=== PATIENT | female | born 1985 | race Caucasian/White ===

== ENCOUNTER 2018-11-11 08:37 | Inpatient (IN) | payer BC ==
[2018-11-11] MEDS ORDERED: Oxytocin 30 UNIT 30 UNITS/500 ML BAG IV ONE ×2 (08:46→13:50)
[2018-11-11] MEDS ORDERED: Lactated Ringer's 1,000 ML IV ONE (08:46)
[2018-11-11 08:55] VITALS: BMI 25.7
[2018-11-11] MEDS ORDERED: AMPicillin 2 GM in Sodium Chloride 0.9% 100 ML IVPB ONE (09:15)
[2018-11-11] MEDS ORDERED: AMPicillin 1 GM in Sodium Chloride 0.9% 100 ML IVPB SCH (09:15)
[2018-11-11 09:24] LABS: BASO % 0.5 % (0.0-2.0); EOS # 0.1 K/uL (0.0-0.7); EOS % 0.9 % (0.0-4.0); HEMOGLOBIN 11.6 g/dL (12.0-16.0); LYMPH # 2.7 K/uL (1.0-4.3); MEAN CORPUSCULAR HEMOGLOBIN 29.3 pg (27.0-31.0); MEAN CORPUSCULAR HGB CONC 32.9 g/dL (33.0-37.0); MEAN PLATELET VOLUME 8.3 fl (7.2-11.7); MONO # 0.5 K/uL (0.0-0.8); MONO % 6.6 % (0.0-10.0); NEUT # 4.6 K/uL (1.8-7.0); RBC 3.97 Mil/uL (3.80-5.20); RED CELL DISTRIBUTION WIDTH 14.5 % (11.5-14.5); WHITE BLOOD COUNT 7.9 K/uL (4.8-10.8)
[2018-11-11 09:33] LABS: BLOOD UREA NITROGEN 10 mg/dl (7-17); CALCIUM 9.2 mg/dL (8.4-10.2); GFR NON-AFRICAN AMERICAN > 60
[2018-11-11] MEDS: Lactated Ringer's 1,000 ML IV SCH ×3 (10:05→17:29)
[2018-11-11] MEDS ORDERED: Fentanyl/Bupivacaine HCl 250 ML EPI ONE (11:35)
[2018-11-11] MEDS ORDERED: Bupivacaine HCl 0.5% PF (30 ml) Inj ONE (11:40)
[2018-11-11] MEDS ORDERED: ceFAZolin IV 2 gm in Dextrose 2 GM/50 ML BAG IVPB ONE ×2 (12:45→12:49)
[2018-11-11] MEDS ORDERED: Lidocaine 2% PF (10 ml) Amp ONE (12:52)
[2018-11-11] MEDS ORDERED: Propofol 10 mg/ml Inj (20 ML) ONE (12:59)
[2018-11-11] MEDS ORDERED: ePHEDrine 50 mg/ml Inj ONE (13:02)
[2018-11-11] MEDS ORDERED: Morphine 1 mg/ml preservative-free Inj(Duramorph) ONE (13:14)
[2018-11-11] MEDS ORDERED: OXYTOCIN/0.9 % NS 20 UNIT/1,000 ML BAG IV SCH ×2 (13:15→13:57)
[2018-11-11] MEDS ORDERED: Oxycodone/Acetaminophen 5/325 mg Tab PO PRN ×4 (13:50→18:09)
[2018-11-11] MEDS ORDERED: DiphenhydrAMINE 50 mg/ml Inj IVP PRN ×2 (13:58→18:09)
--- NOTE | 2018-11-11 14:04 | OBDS ---
DELIVERY PERSONNEL Delivery Doctor: Charity Emnauel MD Operations Support Representative: Geovanna-Kathie Ham RN MATERNAL INFORMATION Delivery Anesthesia: Spinal Medications in Delivery: pitocin 30units Estimated Blood Loss (ml): 900 Placenta Cultured: No Maternal Complications: Abruptio Placenta; Other Other Maternal Complications: gest DM/mild IUGR Provider Comments: see dictated surgeons note LABOR SUMMARY EDC: 11/18/2018 00:00 No. Babies in Womb: 1 LABOR INFORMATION Reason for Induction: Other Reason for Induction Other: gest DM/mild IUGR/early labor Onset of Labor: IOL Steroids Given: None Reason Steroids Not Administered: Not Applicable VAGINAL DELIVERY Episiotomy: None Laceration Extension: N/A Laceration Type: None Sponge Count Correct: Yes Sharps Count Correct: Yes Count Comment: or count correct x3 CSECTION DELIVERY Primary Indication: Abruptio Placenta Secondary Indication: Abruptio Placenta CSection Urgency: Emergency Labor: Labor Elective: Nonelective CSection Incision: Lower Uterine Transverse Uterine Closure: Double-layer closure PRESENTATION/POSITION BABY A Presentation: Cephalic SCORES BABY A Heart Rate 1 min: >100 bpm Resp Effort 1 min: Good Cry Reflex Irritability 1 min: Cough or Sneeze or Pulls Away Muscle Tone 1 min: Active Motion Color 1 min: Body [place], Extremities Blue Resuscitation Effort 1 min: Tactile Stimulation SCORE 1 MIN: 9 Heart Rate 5 min: >100 bpm Resp Effort 5 min: Good Cry Reflex Irritability 5 min: Cough or Sneeze or Pulls Away Muscle Tone 5 min: Active Motion Color 5 min: Body [place], Extremities Blue Resuscitation Effort 5 min: N/A SCORE 5 MIN: 9 IDENTIFICATION/MEDS BABY A ID Band Number: [id number] ID Band Location: Left Leg; Left Arm Vitamin K Given : Not Given Erythromycin Given: Not Given ASSESSMENT BABY A Complications: None Physical Findings at Delivery: Within Normal Limits Infant Respirations: Appears Normal Channel Sales Manager/ALS Called : No Infant Care By: Dr. small Transferred To: Nursery
[2018-11-11] MEDS ORDERED: cefOXitin IV 1 gm in Dextrose 1 GM/50 ML BAG IVPB SCH (17:00)
[2018-11-11 20:27] LABS: BASO # 0.1 K/uL (0.0-0.2); BASO % 0.8 % (0.0-2.0); EOS % 0.1 % (0.0-4.0); HEMOGLOBIN 8.6 g/dL (12.0-16.0); LYMPH % 17.3 % (20.0-40.0); MEAN CELL VOLUME 88.8 fl (81.0-99.0); MEAN CORPUSCULAR HEMOGLOBIN 29.9 pg (27.0-31.0); MEAN CORPUSCULAR HGB CONC 33.6 g/dL (33.0-37.0); MEAN PLATELET VOLUME 7.8 fl (7.2-11.7); MONO # 0.7 K/uL (0.0-0.8); MONO % 5.9 % (0.0-10.0); NEUT # 8.8 K/uL (1.8-7.0); NEUT % 75.9 % (50.0-75.0); RBC 2.88 Mil/uL (3.80-5.20); RED CELL DISTRIBUTION WIDTH 14.5 % (11.5-14.5); WHITE BLOOD COUNT 11.5 K/uL (4.8-10.8)
[2018-11-12] MEDS: cefOXitin IV 1 gm in Dextrose 1 GM/50 ML BAG IVPB SCH ×2 (01:16→09:39)
[2018-11-12] MEDS: Lactated Ringer's 1,000 ML IV SCH (03:41)
[2018-11-12 06:54] LABS: HEMOGLOBIN 8.3 g/dL (12.0-16.0); MEAN CELL VOLUME 88.8 fl (81.0-99.0); MEAN CORPUSCULAR HEMOGLOBIN 29.5 pg (27.0-31.0); MEAN CORPUSCULAR HGB CONC 33.2 g/dL (33.0-37.0); RBC 2.82 Mil/uL (3.80-5.20); RED CELL DISTRIBUTION WIDTH 14.5 % (11.5-14.5)
--- NOTE | 2018-11-12 07:57 | OBPPN ---
Datetime: 11/12/2018 07:49 PP Pain Prov: Within normal limits PP Pain Prov comment: no SOB chest pain or leg pains PP Nausea Prov: Denies PP Flatus Prov: Yes PP BM Prov: No PP Breasts Prov: Normal PP Lungs Prov: Normal PP Abdomen/Uterus Prov: Abnormal PP Lochia Prov: Normal PP Vulva/Perineum Prov: Normal PP CVA Tenderness Prov: Normal PP Extremities Prov: Normal PP C/S Incision Prov: Normal PP Progress Prov: Normal PP Comments Phys Exam Prov: breast not engorged; ABd soft ND, fu;ndus firm at umb. Dressing intact no sign of actiive bleeding; Ext no calf tenderness Venodyne in place PP Impression Prov: Normal progression PP Plan Prov: Continue present management PP Progress Note Prov: CBC stable will advance diet and start on stool soft and po iron Continue PO care IP PP Procedures: None
[2018-11-12] MEDS ORDERED: Multivitamin With Minerals Tab PO SCH (09:00)
[2018-11-12] MEDS: Multivitamin With Minerals Tab PO SCH (09:17)
--- NOTE | 2018-11-13 08:07 | OBPPN ---
Datetime: 11/13/2018 08:03 PP Pain Prov: Within normal limits PP Pain Prov comment: Denies jSOB chest or leg pains PP Nausea Prov: Denies PP Flatus Prov: Yes PP BM Prov: No PP Nausea Prov comment: voiding well PP Breasts Prov: Normal PP Lungs Prov: Normal PP Abdomen/Uterus Prov: Abnormal PP Lochia Prov: Normal PP Vulva/Perineum Prov: Normal PP CVA Tenderness Prov: Normal PP Extremities Prov: Normal PP C/S Incision Prov: Normal PP Progress Prov: Normal PP Comments Phys Exam Prov: breast not engorged, breast feeding; Abd soft ND, fundus firm below umb Incision clean and dry no suppt or discharge Prolene in place; Ext no calf tenderness no leg edema. PP Impression Prov: Normal progression PP Plan Prov: Continue present management PP Progress Note Prov: Dulcolax suppt this pm if no bm. continue OOB and ambulation Increase po flui ds IP PP Procedures: None
[2018-11-13] MEDS: Multivitamin With Minerals Tab PO SCH (09:18)
[2018-11-14] MEDS: Multivitamin With Minerals Tab PO SCH (07:32)
--- NOTE | 2018-11-14 09:49 | OBPPN ---
Datetime: 11/14/2018 09:42 PP Pain Prov: Within normal limits PP Pain Prov comment: No SOB, chest or leg pains PP Nausea Prov: Denies PP Flatus Prov: Yes PP BM Prov: Yes PP Nausea Prov comment: voiding well PP Breasts Prov: Normal PP Lungs Prov: Normal PP Abdomen/Uterus Prov: Abnormal PP Lochia Prov: Normal PP Vulva/Perineum Prov: Normal PP CVA Tenderness Prov: Normal PP Extremities Prov: Normal PP C/S Incision Prov: Normal PP Progress Prov: Normal PP Comments Phys Exam Prov: breast feeding, not engorged; ABd soft ND, fundus firm below the umb, in cision clean and dry no suppt or discharge Sutures in place no sign of infection. Ext no calf tender ness. PP Impression Prov: Normal progression PP Plan Prov: Discharge PP Progress Note Prov: d/C home with instructions and follow up office 1 wk IP PP Procedures: None Vital Signs Provider PP: Reviewed
--- NOTE | 2018-11-14 09:51 | OBDCSUM ---
Datetime: 11/14/2018 09:47 Discharged to, Provider: Home Follow up at, Provider: Dr Emanuel Disch Instr Activity: Bedrest; May be up to bathroom; May be up for meals; May Shower Disch Instr Diet: Regular Discharge Instructions, Provider: Routine instructions given Discharge Diagnosis, Provider: Term Delivered Discharge Time: 11/14/2018 09:47 Follow up in weeks, Provider: 1 wk Disch Referrals: None Contraception discussed, Prov: Yes Disch Activity Restrictions: No exercising; No lifting; No driving; Minimize walking; Minimize stair -climbing; No sexual activity; Nothing in vagina - [place], tampons, douche Discharge Comment, Provider: rx for Percocet and FeSO4 given Pelvic and bed rest Discharge Diagnosis Prov Other: s/p abruption Contraception after Delivery: Undecided
[2018-11-14 18:56] VITALS: BP 102/58; PULSE 76; RESP 20; TEMP 98.3; O2SAT 99
== END 2018-11-14 13:15 | disposition home or self-care (01) | DRG 786 ==
LOC: H.L&D 08:46 → H.OB/GYN 18:00
PROVIDERS: ADMIT Specialist; ATTEND Specialist
PROC: 10D00Z1 Extraction of Products of Conception, Low, Open Approach (ICD-10-PCS; principal; 2018-11-11)
PROC: 4A1HXCZ Monitoring of Products of Conception, Cardiac Rate, External Approach (ICD-10-PCS; 2018-11-11)
DX: O24.429 Gestational diabetes mellitus in childbirth, unspecified control (principal); O45.93 Premature separation of placenta, unspecified, third trimester; O36.5930 Maternal care for other known or suspected poor fetal growth, third trimester, not applicable or unspecified; Z3A.39 39 weeks gestation of pregnancy; Z37.0 Single live birth